=== PATIENT | male | born 1970 | race Hispanic/Latino ===

== ENCOUNTER 2019-07-17 23:37 | Emergency (ER) | payer SELFPAY ==
[2019-07-18 00:52] LABS: Protime INR 1.11
[2019-07-18 00:54] LABS: Absolute Lymphocytes (CBC) 2.4 K/uL (0.7-4.9); Basophils % 0.4 % (0-1.3); Hematocrit 43.9 % (39.6-49.0); Lymphocytes % 24.9 % (15.3-44.8); MPV 9.1 fL (7.6-11.3); RBC Red Blood Cell Count 4.87 M/uL (4.33-5.43)
[2019-07-18 01:43] LABS: ALT/SGPT 59 U/L (12-78); AST/SGOT 35 U/L (15-37); Albumin 4.1 g/dL (3.4-5.0); Alkaline Phosphatase 136 U/L (45-117); BUN Blood Urea Nitrogen 19 mg/dL (7-18); Bicarbonate 27 mmol/L (21-32); Bilirubin Direct 0.2 mg/dL (0-0.2); Bilirubin Total 0.7 mg/dL (0.2-1.0); Glucose Level 92 mg/dL (74-106); Magnesium 2.1 mg/dL (1.8-2.4); NT PRO-BNP 7 pg/mL (<125); Potassium 3.5 mmol/L (3.5-5.1); Protein, Total 7.5 g/dL (6.4-8.2); Sodium Level 140 mmol/L (136-145); Troponin (Emerg Dept Use Only) < 0.02 ng/mL (0.0-0.045)
--- NOTE | 2019-07-18 01:50 | ER ---
Nurse's Notes [facility] Name: Tereso Allan Age: 49 yrs Sex: Male : 1970 Arrival Date: 07/17/2019 Time: 23:42 Bed 5 Private MD: Diagnosis: Essential (primary) hypertension Presentation: 07/17 23:56 Presenting complaint: Patient states: he was seen by a physcian on and bb diagnosed with high blood pressure and was started on amlodipine but he says he has not been feeling well checked his BP tonight and it was 170/140 range, he is having "little aches" left chest area, his feet are numb. Transition of care: patient was not received from another setting of care. 23:56 Method Of Arrival: Ambulatory bb 23:58 Onset of symptoms was July 17, 2019. Risk Assessment: Do you want to hurt yourself bb or someone else? Patient reports no desire to harm self or others. Initial Sepsis Screen: Does the patient meet any 2 criteria? No. Patient's initial sepsis screen is negative. Does the patient have a suspected source of infection? No. Patient's initial sepsis screen is negative. Care prior to arrival: None. 23:58 Acuity: SHANICE 3 bb Historical: - Allergies: 07/18 00:00 No Known Allergies; bb - Home Meds: 00:00 amlodipine oral [Active]; bb - PMHx: 00:00 Hypertension; bb - PSHx: 00:00 None; bb - Immunization history:: Adult Immunizations up to date. - Social history:: Smoking status: Patient/guardian denies using tobacco, Patient uses alcohol, but reports only rare drinking. Patient/guardian denies using street drugs. - Ebola Screening: : No symptoms or risks identified at this time. Screenin:00 Abuse screen: Denies threats or abuse. Denies injuries from another. Nutritional rr5 screening: No deficits noted. Tuberculosis screening: No symptoms or risk factors identified. Fall Risk None identified. Total Angelo Fall Scale indicates No Risk (0-24 pts). Assessment: 00:00 General: Appears in no apparent distress. uncomfortable, Behavior is calm, cooperative, rr5 anxious, Reports feeling ill for. 00:00 Pain: Complains of pain in chest Pain does not radiate. Pain currently is 5 out of 10 rr5 on a pain scale. Quality of pain is described as aching, Pain began gradually, Is intermittent. Neuro: Level of Consciousness is awake, alert, obeys commands, Oriented to person, place, time, situation, Reports numbness weakness. Cardiovascular: Reports chest pain, Capillary refill < 3 seconds Patient's skin is warm and dry. Respiratory: Airway is patent Respiratory effort is even, unlabored, Respiratory pattern is regular, symmetrical. GI: No signs and/or symptoms were reported involving the gastrointestinal system. : No signs and/or symptoms were reported regarding the genitourinary system. EENT: No signs and/or symptoms were reported regarding the EENT system. Derm: Skin is intact, is healthy with good turgor, Skin temperature is warm. Musculoskeletal: Circulation, motion, and sensation intact. Capillary refill < 3 seconds. 01:11 Reassessment: Patient appears in no apparent distress at this time. Patient is alert, rr5 oriented x 3, equal unlabored respirations, skin warm/dry/pink. awaiting for results. no complaints made. 02:00 Reassessment: Patient appears in no apparent distress at this time. Patient is alert, rr5 oriented x 3, equal unlabored respirations, skin warm/dry/pink. discharge instruction given and explained without complaints made, verbalized understanding. Patient denies pain at this time. Patient states feeling better. Patient states symptoms have improved. Vital Signs: 00:00 BP 139 / 92; Pulse 66; Resp 16; Temp 97.8(O); Pulse Ox 98% on R/A; Weight 127.91 kg bb (R); Height 5 ft. 9 in. (175.26 cm) (R); Pain 5/10; 00:45 BP 123 / 83; Pulse 69; Resp 18; Pulse Ox 98% ; rr5 01:11 BP 118 / 74; Pulse 65; Resp 16; Pulse Ox 99% ; rr5 02:00 BP 113 / 75; Pulse 69; Resp 19; Temp 98; Pulse Ox 99% ; Pain 0/10; rr5 00:00 Body Mass Index 41.64 (127.91 kg, 175.26 cm) ED Course: 07/17 23:42 Patient arrived in ED. cf2 23:49 Dane Nath PA is PHCP. jr8 23:49 Skip Montero MD is Attending Physician. jr8 23:50 EKG done, by ED staff, reviewed by Dane ROTHMAN. rr5 23:53 Chidi Barrera, RN is Primary Nurse. rr5 07/18 00:00 Triage completed. bb 00:00 Arm band placed on Patient placed in an exam room, on a stretcher, on pulse oximetry. bb EKG completed in triage. Results shown to MD. 00:00 Inserted saline lock: 20 gauge in right antecubital area, using aseptic technique. rr5 ,using aseptic technique. inserted by [facility] Blood collected. 00:05 Patient has correct armband on for positive identification. Placed in gown. Bed in low rr5 position. Call light in reach. campus monitor on. Pulse ox on. NIBP on. 00:26 XRAY Chest (1 view) In Process Unspecified. EDMS 02:01 No provider procedures requiring assistance completed. IV discontinued, intact, rr5 bleeding controlled, No redness/swelling at site. Pressure dressing applied. Administered Medications: No medications were administered Outcome: 01:50 Discharge ordered by MD. jr8 02:01 Discharged to home ambulatory. rr5 02:01 Condition: stable 02:01 Discharge instructions given to patient, Instructed on discharge instructions, follow up and referral plans. Demonstrated understanding of instructions, follow-up care. 02:02 Patient left the ED. rr5 Signatures: Dispatcher [employer] EDID Brigitte Grant RN RN bb Roszak, Josh, PA PA jr8 Chidi Barrera, RN RN rr5 Mitch Morin 2
--- NOTE | 2019-07-18 01:51 | EDPHYS ---
Physician Documentation [facility] Name: Tereso Allan Age: 49 yrs Sex: Male : 1970 Arrival Date: 07/17/2019 Time: 23:42 Bed 5 Private MD: ED Physician Skip Montero HPI: 07/18 01:10 This 49 yrs old Male presents to ER via Ambulatory with complaints of High jr8 Blood Pressure, Numbness, Weakness. 01:10 Onset: The symptoms/episode began/occurred gradually, today. Modifying factors: The jr8 symptoms are aggravated by activity, The symptoms are alleviated by remaining still, prescription meds. Associated signs and symptoms: Pertinent positives: dizziness, weakness. Severity of symptoms: At its worst the blood pressure was moderate, in the emergency department the blood pressure is now normal. The blood pressure problem is resolved. The patient has experienced a previous episode. The patient has not recently seen a physician. Patient with recent diagnosis of HTN. Was put on medication. Stated that he started to feel bad tonight and saw that his BP was elevated. Took extra BP med tonight but was still feeling bad. Denies CP, or shortness of breath. Historical: - Allergies: 00:00 No Known Allergies; bb - Home Meds: 00:00 amlodipine oral [Active]; bb - PMHx: 00:00 Hypertension; bb - PSHx: 00:00 None; bb - Immunization history:: Adult Immunizations up to date. - Social history:: Smoking status: Patient/guardian denies using tobacco, Patient uses alcohol, but reports only rare drinking. Patient/guardian denies using street drugs. - Ebola Screening: : No symptoms or risks identified at this time. ROS: 01:10 Eyes: Negative for injury, pain, redness, and discharge, ENT: Negative for injury, jr8 pain, and discharge, Neck: Negative for injury, pain, and swelling, Cardiovascular: Negative for chest pain, palpitations, and edema, Respiratory: Negative for shortness of breath, cough, wheezing, and pleuritic chest pain, Abdomen/GI: Negative for abdominal pain, nausea, vomiting, diarrhea, and constipation, Back: Negative for injury and pain, MS/Extremity: Negative for injury and deformity, Skin: Negative for injury, rash, and discoloration. 01:10 Neuro: Positive for dizziness, weakness. Exam: 01:10 Eyes: Pupils equal round and reactive to light, extra-ocular motions intact. Lids and jr8 lashes normal. Conjunctiva and sclera are non-icteric and not injected. Cornea within normal limits. Periorbital areas with no swelling, redness, or edema. ENT: Nares patent. No nasal discharge, no septal abnormalities noted. Tympanic membranes are normal and external auditory canals are clear. Oropharynx with no redness, swelling, or masses, exudates, or evidence of obstruction, uvula midline. Mucous membranes moist. Neck: Trachea midline, no thyromegaly or masses palpated, and no cervical lymphadenopathy. Supple, full range of motion without nuchal rigidity, or vertebral point tenderness. No Meningismus. Cardiovascular: Regular rate and rhythm with a normal S1 and S2. No gallops, murmurs, or rubs. Normal PMI, no JVD. No pulse deficits. Respiratory: Lungs have equal breath sounds bilaterally, clear to auscultation and percussion. No rales, rhonchi or wheezes noted. No increased work of breathing, no retractions or nasal flaring. Abdomen/GI: Soft, non-tender, with normal bowel sounds. No distension or tympany. No guarding or rebound. No evidence of tenderness throughout. Back: No spinal tenderness. No costovertebral tenderness. Full range of motion. Skin: Warm, dry with normal turgor. Normal color with no rashes, no lesions, and no evidence of cellulitis. MS/ Extremity: Pulses equal, no cyanosis. Neurovascular intact. Full, normal range of motion. Neuro: Awake and alert, GCS 15, oriented to person, place, time, and situation. Cranial nerves II-XII grossly intact. Motor strength 5/5 in all extremities. Sensory grossly intact. Cerebellar exam normal. Normal gait. Vital Signs: 00:00 BP 139 / 92; Pulse 66; Resp 16; Temp 97.8(O); Pulse Ox 98% on R/A; Weight 127.91 kg bb (R); Height 5 ft. 9 in. (175.26 cm) (R); Pain 5/10; 00:45 BP 123 / 83; Pulse 69; Resp 18; Pulse Ox 98% ; rr5 01:11 BP 118 / 74; Pulse 65; Resp 16; Pulse Ox 99% ; rr5 02:00 BP 113 / 75; Pulse 69; Resp 19; Temp 98; Pulse Ox 99% ; Pain 0/10; rr5 00:00 Body Mass Index 41.64 (127.91 kg, 175.26 cm) bb MDM: 00:02 Patient medically screened. [facility] 01:48 Data reviewed: vital signs, nurses notes, lab test result(s), EKG, radiologic studies, [facility] plain films. Data interpreted: Pulse oximetry: on room air is 99 %. Interpretation: normal. Counseling: I had a detailed discussion with the patient and/or guardian regarding: the historical points, exam findings, and any diagnostic results supporting the discharge/admit diagnosis, lab results, radiology results, the need for outpatient follow up, a recreational leader, to return to the emergency department if symptoms worsen or persist or if there are any questions or concerns that arise at home. ED course: Patient doing well. BP stable. No acute EKG, lab, or CXR findings. Will d/c home to f/u with PCP. If worse, knows to come back . 07/18 00:02 Order name: Basic Metabolic Panel; Complete Time: :47 07/18 00:02 Order name: CBC with Diff; Complete Time: 01:07/18 00:02 Order name: LFT's; Complete Time: 07/18 00:02 Order name: Magnesium; Complete Time: 07/18 00:02 Order name: NT PRO-BNP; Complete Time: :07/18 00:02 Order name: PT-INR; Complete Time: :07/18 00:02 Order name: Troponin (emerg Dept Use Only); Complete Time: :47 07/18 00:02 Order name: XRAY Chest (1 view) 07/18 00:02 Order name: EKG; Complete Time: 00:05 07/18 00:02 Order name: Cardiac monitoring; Complete Time: 00:07/18 00:02 Order name: EKG - Nurse/Tech; Complete Time: 00:07/18 00:02 Order name: IV Saline Lock; Complete Time: 00:07/18 00:02 Order name: Labs collected and sent; Complete Time: 00:07/18 00:02 Order name: O2 Per Protocol; Complete Time: 00:07/18 00:02 Order name: O2 Sat Monitoring; Complete Time: 00: Administered Medications: No medications were administered Disposition: 04:17 Co-signature as Attending Physician, Skip Montero MD I agree with the assessment and [facility] plan of care. Disposition: 07/18/19 01:50 Discharged to Home. Impression: Essential (primary) hypertension. - Condition is Stable. - Discharge Instructions: Hypertension. - Medication Reconciliation Form, Thank You Letter, Antibiotic Education, Prescription Opioid Use form. - Follow up: Private Physician; When: 2 - 3 days; Reason: Recheck today's complaints, Continuance of care, Re-evaluation by your physician. - Problem is new. - Symptoms have improved. Signatures: Dispatcher [employer] EDMS Brigitte Grant RN RN Dane Nath PA PA jr8 Skip Montero MD MD 4 Chidi Barrera RN RN rr5 Corrections: (The following items were deleted from the chart) 02:02 01:50 07/18/2019 01:50 Discharged to Home. Impression: Essential (primary) rr5 hypertension. Condition is Stable. Forms are Medication Reconciliation Form, Thank You Letter, Antibiotic Education, Prescription Opioid Use. Follow up: Private Physician; When: 2 - 3 days; Reason: Recheck today's complaints, Continuance of care, Re-evaluation by your physician. Problem is new. Symptoms have improved.
[2019-07-18 03:19] VITALS: O2SAT 99
[2019-07-18 03:20] VITALS: BP 113/75; TEMP 98
--- NOTE | 2019-07-18 08:14 | RAD REPORT ---
EXAM DESCRIPTION: RAD - Chest Single View - 07/18/2019 12:24 am CLINICAL HISTORY: CHEST PAIN Chest pain. COMPARISON: No comparisons FINDINGS: Portable technique limits examination quality. The lungs are grossly clear. The heart is mildly enlarged in size. No displaced fractures. IMPRESSION: No acute intrathoracic process suspected.
--- NOTE | 2019-07-18 08:38 | EKG ---
Test Date: 2019-07-18 Test Time: 00:00:51 Public Works Manager: DANK MEASUREMENT RESULTS: Intervals: Rate: 63 IA: 154 QRSD: 82 QT: 410 QTc: 419 [place]: P: 13 IA: 154 QRS: -20 T: 9 INTERPRETIVE STATEMENTS: Normal sinus rhythm Normal ECG No previous ECG available for comparison Electronically Signed On 07-18-19 08:37:23 GEOTHERMAL PRODUCTION MANAGER by Jevon Fernandez
== END 2019-07-18 02:02 | disposition home or self-care (01) ==
LOC: ER 23:37
DX: I10 Essential (primary) hypertension (principal)
CPT/HCPCS: 36415; 71045; 80048; 80076; 83735; 83880; 84484; 85025; 85610; 93005; 99284